=== PATIENT | male | born 1950 | race Caucasian/White ===

== ENCOUNTER 2018-07-24 16:07 | Emergency (ER) | payer MEDICARE, OTHER ==
[~2018-07-24] VITALS: Ht 175.3 cm; Wt 95.3 kg
[~2018-07-24 16:07] MED LIST: ALLOPURINOL300 MG PO; BEANO1 EACH PO; CYCLOBENZAPRINE10 MG PO; DIPYRIDAMOLE25 MG PO; FENOFIBRATE145 MG PO; FINASTERIDE5 MG PO; GLIMEPIRIDE2 MG PO; LISINOPRIL10 MG PO; OMEPRAZOLE40 MG PO; POLYETHYLENE GL17 GM PO; STOOL SOFTENER240 MG PO; TAMSULOSIN HCL0.4 MG PO; ULTRAM50 MG PO; WARFARIN SODIU2.5 MG PO; XIFAXAN550 MG PO
--- NOTE | 2018-07-24 16:10 | NUR ---
RECEIVED PT FROM EMS INTO ER 8. PT AA&OX4. COMPLAINING OF INTERMITTENT SHARP RIGHT GROIN PAIN AND ABDOMINAL BLOATING. DENIES N/V/D.
--- OUTSIDE RECORDS SUMMARY | 2018-07-24 16:10 | XMS REPORT | Clinical Summary ---
Author Author [facility] Address Unknown Phone Unavailable Care Team Providers Care Administrative Assistant Receptionist Name Role Phone Balaji Shelton PCP Unavailable Allergies Comments Active Allergy Reactions Severity Noted Date Sulfa (Sulfonamide 06/16/2016 Antibiotics) Medications End Date Status Medication Sig Dispensed Refills Start Date Active allopurinol (ZYLOPRIM) Take 300 mg 0 300 MG tablet by mouth daily. Active dipyridamole (PERSANTINE) Take 50 mg by 0 50 MG tablet mouth 4 (four) times daily. Active docusate sodium (COLACE) Take 100 mg 0 100 MG capsule by mouth 2 (two) times daily. Active fenofibrate (LOFIBRA) 54 Take 54 mg by 0 MG tablet mouth daily. Active finasteride (PROSCAR) 5 Take 5 mg by 0 mg tablet mouth daily. Active glimepiride (AMARYL) 4 MG Take 4 mg by 0 tablet mouth every morning before breakfast. Active lactulose (CEPHULAC) 20 Take 20 g by 0 gram packet mouth 3 (three) times daily. Active levothyroxine (SYNTHROID, Take 25 mcg 0 LEVOTHROID) 25 MCG tablet by mouth Every morning on an empty stomach. Active lisinopril Take 10 mg by 0 (PRINIVIL,ZESTRIL) 10 MG mouth daily. tablet Active lubiprostone (AMITIZA) 8 Take 8 mcg by 0 MCG capsule mouth 2 (two) times daily with breakfast and dinner. Active omeprazole (PRILOSEC) 20 Take 20 mg by 0 MG capsule mouth daily. Active warfarin (COUMADIN) 5 MG Take 5 mg by 0 tablet mouth daily. Active metroNIDAZOLE Apply 0 (METROCREAM) 0.75 % cream topically 2 (two) times daily. 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 Last Filed Vital Signs Time Taken Vital Sign Reading 07/28/2017 11:53 AM [facility] Blood Pressure 119/79 07/28/2017 11:53 AM [facility] Pulse 75 - Temperature - 07/28/2017 11:53 AM [facility] Respiratory Rate 16 07/28/2017 11:53 AM [facility] Oxygen Saturation 95% - Inhaled Oxygen - Concentration - Weight - - Height - - Body Mass Index - Plan of Treatment Not on file Procedures Comments Procedure Name Priority Date/Time Associated Diagnosis ECHOCARDIOGRAM REPORT - 07/28/2017 SCAN 6:20 PM [facility] TRANSESOPHAGEAL ECHO Routine 07/28/2017 Embolism due to heart 10:38 AM [facility] valve prosthesis, initial encounter PROTHROMBIN TIME/INR Routine 07/28/2017 10:34 AM [facility] COLOR-FLOW MAPPING Routine 07/28/2017 Embolism due to heart 10:16 AM [facility] valve prosthesis, initial encounter CONT WAVE PULSED DOPPLER Routine 07/28/2017 Embolism due to heart 10:16 AM [facility] valve prosthesis, initial encounter after 07/23/2017 Results * ECHOCARDIOGRAM REPORT - SCAN (07/28/2017 6:20 PM [facility]) Narrative Performed At * Transesophageal echo (07/28/2017 10:38 AM [facility]) Ejection Fraction [facility] Narrative Performed At Transesophageal Echocardiography Report (KAYLEE) [facility] Demographics [facility] CPACS Patient Name CAMILLE BUITRAGO Date of Study 07/28/2017 GUILLERMINA [id number] Male Visit Number [id number] Room Number Number Date of Birth1950Referring Physician Paul Crowley Age67 year(s)Repack Room Worker Clinton Juárez [facility] Lauryn Lnua MD Physicia n Fellow Coryeli Hsieh The procedure was explained in detail to the patient. Risks, complications and alternative treatments were reviewed. Written consent was obtained. Procedure Type of Study KAYLEE procedure:TRANSESOPHAGEAL ECHO (Routine) Indications:Embolism. Clinical History Diabetes Hypertension Stroke/TIA Thyroid disease CKD Height: 69 inches Weight: 99.34 kg (219 lbs) BSA: 2.15 m^2 BMI: 32.34 kg/m^2 HR: 71 bpm BP: 117/85 mmHg Procedure Informed Consent Procedure consent form obtained. Airway assessment performed. KAYLEE procedure notes The patient was counseled and informed consent was obtained. Topical and intravenous anesthesia was administered. The esophagus was intubated without difficulty. The probe was passed and all standard echocardiographic views were obtained. IV saline contrast echo examination was performed with KAYLEE. The patient tolerated the procedure well. Class 3: Soft and hard palate and base of the uvula are visible. Non-difficult airway. Able to breathe and cough freely. Moderate sedation by performing MD using 4 mg IV versed and 50 mcg IV fentanyl. . Mallampati Score: 3. - See IV sedation record Summary Normal biventricular systolic function. Mildly dilated left atrium. No left atrial appendage thrombus. Well-seated aortic valve mechanical prosthesis with normal function by Doppler (peak velocity 2.4m/s, mean gradient 12mmHg). Mild aortic regurgitation. 2 separate regurgitant jets are seen (one central and another smaller paravalvular jet). Proximal ascending aorta is dilated. No pericardial effusion. Previous Study No prior studies available for comparison. Signature Findings Rhythm/BP Regular sinus rhythm during the exam. LeftNormal left ventricular chamber size. Normal wall thickness. Ventricle Normal overall left ventricular systolic function. No apparent segmental wall motion abnormalities. Left Atrium LA size is mildly enlarged . No evidence of left atrial or left atrial appendage thrombus. Right The right ventricular chamber size and systolic function are Ventricle within normal limits. Right AtriumRA size is normal. Atrial Septum Normal interatrial septum by available views. No atrial shunt by color. Aortic ValveA mechanical AoV prosthesis is visualized. The prosthetic AoV appears well-seated with normal function by Doppler. Prosthetic AoV obstruction is mild P-23, M-12 mmHg . Prosthetic AoV regurgitaton is mild. From a central jet and tiny paravalvar component. Mitral ValveMild MV leaflet thickening. Trace mitral regurgitation. Tricuspid TV structure is normal. Valve Mild tricuspid regurgitation. PulmonicNormal PV structure and function. Valve A trace of pulmonary regurgitation. Aorta Proximal ascending aorta size is Moderately dilated . Grade 3 plaque . Pericardium No pericardial effusion is visualized. Procedure Note Interface, External Ris In - 07/28/2017 5:46 PM [facility] Transesophageal Echocardiography Report (KAYLEE) Demographics Patient Name CAMILLE BUITRAGO Date of Study 07/28/2017 GUILLERMINA Gender Male Visit Number [id number] Race Unknown Room Number Number Date of 1950 Referring Physician Paul Crowley Age 67 year(s) Repack Room Worker Clinton CHRISTIAN Interpreting Tez Luna MD Physician Fellow Cory Hsieh The procedure was explained in detail to the patient. Risks, complications and alternative treatments were reviewed. Written consent was obtained. Procedure Type of Study KAYLEE procedure:TRANSESOPHAGEAL ECHO (Routine) Indications:Embolism. Clinical History Diabetes Hypertension Stroke/TIA Thyroid disease CKD Height: 69 inches Weight: 99.34 kg (219 lbs) BSA: 2.15 m^2 BMI: 32.34 kg/m^2 HR: 71 bpm BP: 117/85 mmHg Procedure Informed Consent Procedure consent form obtained. Airway assessment performed. KAYLEE procedure notes The patient was counseled and informed consent was obtained. Topical and intravenous anesthesia was administered. The esophagus was intubated without difficulty. The probe was passed and all standard echocardiographic views were obtained. IV saline contrast echo examination was performed with KAYLEE. The patient tolerated the procedure well. Class 3: Soft and hard palate and base of the uvula are visible. Non-difficult airway. Able to breathe and cough freely. Moderate sedation by performing MD using 4 mg IV versed and 50 mcg IV fentanyl. . Mallampati Score: 3. - See IV sedation record Summary Normal biventricular systolic function. Mildly dilated left atrium. No left atrial appendage thrombus. Well-seated aortic valve mechanical prosthesis with normal function by Doppler (peak velocity 2.4m/s, mean gradient 12mmHg). Mild aortic regurgitation. 2 separate regurgitant jets are seen (one central and another smaller paravalvular jet). Proximal ascending aorta is dilated. No pericardial effusion. Previous Study No prior studies available for comparison. Signature Findings Rhythm/BP Regular sinus rhythm during the exam. Left Normal left ventricular chamber size. Normal wall thickness. Ventricle Normal overall left ventricular systolic function. No apparent segmental wall motion abnormalities. Left Atrium LA size is mildly enlarged . No evidence of left atrial or left atrial appendage thrombus. Right The right ventricular chamber size and systolic function are Ventricle within normal limits. Right Atrium RA size is normal. Atrial Septum Normal interatrial septum by available views. No atrial shunt by color. Aortic Valve A mechanical AoV prosthesis is visualized. The prosthetic AoV appears well-seated with normal function by Doppler. Prosthetic AoV obstruction is mild P-23, M-12 mmHg . Prosthetic AoV regurgitaton is mild. From a central jet and tiny paravalvar component. Mitral Valve Mild MV leaflet thickening. Trace mitral regurgitation. Tricuspid TV structure is normal. Valve Mild tricuspid regurgitation. Pulmonic Normal PV structure and function. Valve A trace of pulmonary regurgitation. Aorta Proximal ascending aorta size is Moderately dilated . Grade 3 plaque . Pericardium No pericardial effusion is visualized. Performing Organization Address City/State/Zipcode Phone Number [facility] * Prothrombin time/INR (07/28/2017 10:34 AM [facility]) Protime 25.5 (H) 11.7 - 14.7 seconds [facility] INR 2.3 <=5.9 [facility] Specimen Blood Narrative Performed At RECOMMENDED COUMADIN/WARFARIN INR THERAPY RANGES [facility] STANDARD DOSE: 2.0 - 3.0 Includes: PROPHYLAXIS for venous thrombosis, [facility] systemic embolization; TREATMENT for venous thrombosis and/or pulmonary embolus. HIGH RISK: Target INR is 2.5-3.5 for patients with mechanical heart valves. Performing Organization Address City/State/Zipcode Phone Number [facility] [address] [place] [address] [facility] after 07/23/2017 Insurance Payer Benefit Subscriber ID Type Phone Address Plan / Group [facility] xxxxxxxxxxx MEDICARE ADV
--- OUTSIDE RECORDS SUMMARY | 2018-07-24 16:11 | XMS REPORT | Summary of Care ---
Author Author [facility] Organization [facility] Address Unknown Phone Unavailable Encounter JERED Qureshi(ALEXANDRE) [id number] Date(s): 12/21/16 - 12/21/16 [facility] [address] [place] [address]- Discharge Diagnosis: Finger laceration Discharge Disposition: Home or Self Care Attending Physician: Javed Gonsalez MD Vital Signs Most recent to 1 2 oldest [Reference Range]: Height 172.72 cm (12/21/16 7:06 PM) Temperature Oral 98.7 DegF 98.8 DegF [96.4-99.1 DegF] (12/21/16 8:02 PM) (12/21/16 7:06 PM) Blood Pressure 134/78 mmHg 139/76 mmHg [90-140/60-90 mmHg] (12/21/16 8:02 PM) (12/21/16 7:06 PM) Respiratory Rate 16 BRMIN 18 BRMIN [14-20 BRMIN] (12/21/16 8:02 PM) (12/21/16 7:06 PM) Peripheral Pulse 81 bpm 83 bpm Rate [60-100 bpm] (12/21/16 8:02 PM) (12/21/16 7:06 PM) Weight 95.455 kg (12/21/16 7:06 PM) Body Mass Index 32 m2 (12/21/16 7:06 PM) Problem List Condition Effective Dates Status Health Status Informant Diabetes(Confirmed) Resolved Hyperlipidemia(Confi Resolved rmed) Allergies, Adverse Reactions, Alerts Substance Reaction Severity Status sulfa drugs Active Medications No data available for this section Results No data available for this section Immunizations No data available for this section Procedures Procedure Date Related Diagnosis Body Site Angiography1 1mechanical left heart valve (St. Cristopher Valve) Social History Social History Type Response Smoking Status Never smoker; Exposure to Tobacco Smoke None; Cigarette Smoking Last 365 Days No; Reg Smoking Cessation Counseling No Assessment and Plan No data available for this section
--- OUTSIDE RECORDS SUMMARY | 2018-07-24 16:11 | XMS REPORT ---
Author Author [facility] Address Unknown Phone Unavailable Care Team Providers Care Nuclear Medicine Technician Name Role Phone BRAD SHORT Unavailable Unavailable Problems This patient has no known problems. Allergies, Adverse Reactions, Alerts This patient has no known allergies or adverse reactions. Medications This patient has no known medications. Results Test Description Test Time Test Comments Text Results Atomic Results Result Comments PROTHROMBIN TIME/INR 2017-07-28 10:53:00 PROTIME (BEAKER) (test oqlp=865) 25.5 seconds 11.7-14.7 INR (BEAKER) (test vsal=519) 2.3 <=5.9 RECOMMENDED COUMADIN/WARFARIN INR THERAPY RANGESSTANDARD DOSE: 2.0 - 3.0 Inclu alan: PROPHYLAXIS for venous thrombosis, systemic embolization; TREATMENT for tanner ous thrombosis and/or pulmonary embolus.HIGH RISK: Target INR is 2.5-3.5 for pat ients with mechanical heart valves.
--- OUTSIDE RECORDS SUMMARY | 2018-07-24 16:11 | XMS REPORT | Continuity of Care Document ---
Author Author [facility] Address Unknown Phone Unavailable Problems Problem Status Onset Date Classification Date Reported Comments Source LAC Active 12/21/2016 [facility] Discharge Diagnosis: Finger laceration 12/21/2016 12/24/2016 [facility] Discharge Diagnosis: Left ankle sprain 09/12/2016 09/15/2016 [facility] Discharge Diagnosis: CHI 09/12/2016 09/15/2016 [facility] Discharge Diagnosis: Abrasion of left elbow 09/12/2016 09/15/2016 [facility] Discharge Diagnosis: Accidental fall 09/12/2016 09/15/2016 [facility] Discharge Diagnosis: Abrasion of scalp 09/12/2016 09/15/2016 [facility] HEAD INJURY Active 09/11/2016 [facility] DRUG TEST Active 06/20/2000 [facility] Diabetes Resolved Problem 12/24/2016 [facility] Hyperlipidemia Resolved Problem 12/24/2016 [facility] Medications Medication Details Route Status Patient Instructions Ordering Provider Order Date Source tramadol hydrochloride 50 MG Oral Tablet [Ultram] 50 mg=1 tab, PO, Q6H, PRN pain, No driving while under the influence of this medication, X 3 day, # 12 tab, 0 Refill(s) Active 09/12/2016 [facility] Acetaminophen 325 MG / Hydrocodone Bitartrate 5 MG Oral Tablet [[place] 5/325] 1 tab, Route: PO, Drug Form: TAB, Dosing Weight 99.091, kg, ONCE, STAT, Start date: 09/12/16 1:00:00 CDT, Stop date: 09/12/16 1:00:00 CDT Inactive 09/12/2016 [facility] Acetaminophen 325 MG / Hydrocodone Bitartrate 5 MG Oral Tablet [[place] 5/325] 1 tab, Route: PO, Drug Form: TAB, Dosing Weight 99.091, kg, ONCE, STAT, Start date: 09/12/16 0:58:00 CDT, Stop date: 09/12/16 0:58:00 CDT Inactive 09/12/2016 [facility] Saline Flush 0.9% 10 mL, Route: IVP, Drug Form: INJ, Dosing Weight 99.091, kg, PRN, PRN Line Flush, Start date: 09/12/16 0:58:00 CDT, Duration: 30 day, Stop date: 10/12/16 0:57:00 CDTNotes: (Same as: BD Posiflush) Inactive 09/12/2016 [facility] Allergies, Adverse Reactions, Alerts Substance Category Reaction Severity Reaction type Status Date Reported Comments Source sulfa drugs Assertion Drug allergy Active [facility] Immunizations Immunization Date Given Site Status Last Updated Comments Source Results Order Name Results Value Reference Range Date Interpretation Comments Source CHEM PANEL A/G Ratio 1.1 0.7 - 1.6 09/12/2016 [facility] CHEM PANEL Globulin 3.6 g/dL 2.7 - 4.2 09/12/2016 [facility] CHEM PANEL B/C Ratio 12 6 - 25 09/12/2016 [facility] CHEM PANEL AGAP 10.9 meq/L 10.0 - 20.0 09/12/2016 [facility] CHEM PANEL eGFR 52 mL/min/1.73m2 09/12/2016 Result Comment: The eGFR is calculated using the CKD-EPI formula. In most young, healthy individuals the eGFR will be >90 mL/min/1.73m2. The eGFR declines with age. An eGFR of 60-89 may be normal in some populations, particularly the elderly, for whom the CKD-EPI formula has not been extensively validated. Use of the eGFR is not recommended in the following populations: Individuals with unstable creatinine concentrations, including patients and those with serious co-morbid conditions. Patients with extremes in muscle mass or diet. The data above are obtained from the National Kidney Disease Education Program (NKDEP) which additionally recommends that when the eGFR is used in patients with extremes of body mass index for purposes of drug dosing, the eGFR should be multiplied by the estimated BMI. [facility] CHEM PANEL Bili Total 0.8 mg/dL 0.2 - 1.3 09/12/2016 [facility] CHEM PANEL Alk Phos 64 unit/L 39 - 136 09/12/2016 [facility] CHEM PANEL AST 42 unit/L 0 - 37 09/12/2016 [facility] CHEM PANEL ALT 14 unit/L 0 - 65 09/12/2016 [facility] CHEM PANEL CO2 28 meq/L 24 - 32 09/12/2016 [facility] CHEM PANEL Albumin Lvl 3.9 g/dL 3.5 - 5.0 09/12/2016 [facility] CHEM PANEL Calcium Lvl 8.9 mg/dL 8.5 - 10.5 09/12/2016 [facility] CHEM PANEL Total Protein 7.5 g/dL 6.4 - 8.4 09/12/2016 [facility] CHEM PANEL Chloride Lvl 99 meq/L 95 - 109 09/12/2016 [facility] CHEM PANEL Sodium Lvl 134 meq/L 135 - 145 09/12/2016 [facility] CHEM PANEL Potassium Lvl 3.9 meq/L 3.5 - 5.1 09/12/2016 [facility] CHEM PANEL BUN 17 mg/dL 7 - 22 09/12/2016 [facility] CHEM PANEL Creatinine Lvl 1.40 mg/dL 0.50 - 1.40 09/12/2016 [facility] CHEM PANEL Glucose Lvl 215 mg/dL 70 - 99 09/12/2016 [facility] HEMATOLOGY Platelet 185 K/CMM 133 - 450 09/12/2016 [facility] HEMATOLOGY RDW 14.3 % 11.5 - 14.5 09/12/2016 [facility] HEMATOLOGY MPV 10.0 fL 7.4 - 10.4 09/12/2016 [facility] HEMATOLOGY MCHC 33.2 g/dL 32.0 - 36.0 09/12/2016 [facility] HEMATOLOGY Hgb 15.8 g/dL 14.0 - 18.0 09/12/2016 [facility] HEMATOLOGY MCH 28.8 pg 27.0 - 31.0 09/12/2016 [facility] HEMATOLOGY MCV 86.7 fL 80.0 - 94.0 09/12/2016 [facility] HEMATOLOGY RBC 5.51 M/CMM 4.70 - 6.10 09/12/2016 [facility] HEMATOLOGY Hct 47.8 % 42.0 - 54.0 09/12/2016 [facility] HEMATOLOGY WBC 10.8 K/CMM 3.7 - 10.4 09/12/2016 [facility] HEMATOLOGY PT 31.5 s 12.0 - 14.7 09/12/2016 [facility] HEMATOLOGY INR 2.99 0.85 - 1.17 09/12/2016 [facility] HEMATOLOGY PTT 41.8 s 22.9 - 35.8 09/12/2016 [facility] HEMATOLOGY Segs 69.1 % 45.0 - 75.0 09/12/2016 [facility] HEMATOLOGY Eosinophils 3.0 % 0.0 - 4.0 09/12/2016 [facility] [place] Monocytes 8.2 % 2.0 - 12.0 09/12/2016 [facility] [place] Basophils 1.3 % 0.0 - 1.0 09/12/2016 [facility] [place] Lymphocytes 18.4 % 20.0 - 40.0 09/12/2016 [facility] [place] Lymphocytes # 2.0 K/CMM 1.0 - 5.5 09/12/2016 [facility] [place] Segs-Bands # 7.4 K/CMM 1.5 - 8.1 09/12/2016 [facility] [place] Eosinophils # 0.3 K/CMM 0.0 - 0.5 09/12/2016 [facility] [place] Monocytes # 0.9 K/CMM 0.0 - 0.8 09/12/2016 [facility] [place] Basophils # 0.1 K/CMM 0.0 - 0.2 09/12/2016 [facility] Ankle 3 views DX Ankle 3 views DX EXAM: XR LEFT ANKLE, 3 VIEWS DATE: 09/12/2016 12:58 AM CDT INDICATION: Pain Post Trauma. COMPARISON: None Available. TECHNIQUE: Frontal, oblique, and lateral views of the left ankle were obtained. FINDINGS: No fracture or malalignment is present. The soft tissues are within normal limits. There are no radiopaque foreign bodies. IMPRESSION: No acute fracture or dislocation. SL: [id number] 09/12/2016 - - Read by: Robert Gonsalez MD Dictated Date/time: 09/12/16 01:51 Electronically Signed by: Robert Gonsalez MD 09/12/16 01:52 FINAL REPORT [facility] Brain wo contrast CT Brain wo contrast CT EXAM: CT BRAIN WITHOUT CONTRAST DATE: 09/11/2016 11:42 PM CDT INDICATION: Pain Post Trauma. COMPARISON: None. TECHNIQUE: CT images were obtained from the foramen magnum to the vertex without intravenous contrast on a multidetector CT. Coronal and sagittal reconstructions were also provided for review. CT radiation dose DLP: 981.84 mGy-cm FINDINGS: No acute intracranial hemorrhage, midline shift, or mass effect is identified. The melendez-white matter differentiation is preserved. The ventricles and sulci are within normal limits, without evidence for hydrocephalus. Mild chronic microangiopathic changes are visualized. A chronic lacunar infarct is noted within the left basal ganglia. The orbits, paranasal sinuses, and mastoid air cells are unremarkable. The calvarium and skull base are intact. There is atherosclerotic calcification of the carotid siphons. IMPRESSION: No acute intracranial abnormality. SL: [id number] 09/12/2016 - - Read by: Robert Gonsalez MD Dictated Date/time: 09/12/16 00:16 Electronically Signed by: Robert Gonsalez MD 09/12/16 00:20 FINAL REPORT [facility] Vital Signs Vital Sign Value Date Comments Source Heart Rate 81 12/22/2016 [facility] Systolic (mm Hg) 134 12/22/2016 [facility] Diastolic (mm Hg) 78 12/22/2016 [facility] Respitory Rate 16 12/22/2016 [facility] Temperature Oral (F) 98.7 F 12/22/2016 [facility] BMI Calculated 32 12/22/2016 [facility] Weight 95.455 12/22/2016 [facility] Respitory Rate 18 12/22/2016 [facility] Heart Rate 83 12/22/2016 [facility] Temperature Oral (F) 98.8 F 12/22/2016 [facility] Systolic (mm Hg) 139 12/22/2016 [facility] Diastolic (mm Hg) 76 12/22/2016 [facility] Height 172.72 cm 12/22/2016 [facility] Systolic (mm Hg) 105 09/12/2016 [facility] Diastolic (mm Hg) 68 09/12/2016 [facility] Heart Rate 70 09/12/2016 [facility] Respitory Rate 18 09/12/2016 [facility] Respitory Rate 14 09/12/2016 [facility] Heart Rate 66 09/12/2016 [facility] Systolic (mm Hg) 124 09/12/2016 [facility] Diastolic (mm Hg) 76 09/12/2016 [facility] Temperature Oral (F) 98.1 F 09/12/2016 [facility] Respitory Rate 18 09/12/2016 [facility] Heart Rate 65 09/12/2016 [facility] Systolic (mm Hg) 127 09/12/2016 [facility] Diastolic (mm Hg) 73 09/12/2016 [facility] Weight 99.091 09/12/2016 [facility] BMI Calculated 32.26 09/12/2016 [facility] Height 175.26 cm 09/12/2016 [facility] Temperature Oral (F) 98.1 F 09/12/2016 [facility] Encounters Location Location Details Encounter Type Encounter Number Reason For Visit Attending Provider ADM Date DC Date Status Source [facility] Emergency [id number] Sohan Santiago 09/12/2016 09/12/2016 [facility] Emergency [id number] Javed Sunshine 12/21/2016 12/22/2016 [facility] Procedures Procedure Code Date Perfomer Comments Source Angiography<sup>1</sup> [id number] mechanical left heart valve (St. Cristopher Valve) [facility]
--- OUTSIDE RECORDS SUMMARY | 2018-07-24 16:11 | XMS REPORT | Summary of Care ---
Author Author [facility] Address Unknown Phone Unavailable Encounter JERED Qureshi(ALEXANDRE) [id number] Date(s): 09/11/16 - 09/12/16 [facility] [address] [place] [address]- Discharge Diagnosis: Left ankle sprain Discharge Diagnosis: CHI (closed head injury) Discharge Diagnosis: Abrasion of left elbow Discharge Diagnosis: Accidental fall Discharge Diagnosis: Abrasion of scalp Discharge Disposition: Home or Self Care Attending Physician: Sohan Santiago DO Vital Signs 1 2 3 Most recent to oldest [Reference Range]: 175.26 cm (09/11/16 11:08 PM) Height 98.1 DegF (09/12/16 12:54 AM) 98.1 DegF (09/11/16 11:08 PM) Temperature Oral [96.4-99.1 DegF] 105/68 mmHg (09/12/16 5:04 AM) 124/76 mmHg (09/12/16 2:34 AM) 127/73 mmHg (09/12/16 12:34 AM) Blood Pressure [90-140/60-90 mmHg] 18 BRMIN (09/12/16 5:04 AM) 14 BRMIN (09/12/16 2:34 AM) 18 BRMIN (09/12/16 12:34 AM) Respiratory Rate [14-20 BRMIN] 70 bpm (09/12/16 5:04 AM) 66 bpm (09/12/16 2:34 AM) 65 bpm (09/12/16 12:34 AM) Peripheral Pulse Rate [60-100 bpm] 99.091 kg (09/11/16 11:08 PM) Weight 32.26 m2 (09/11/16 11:08 PM) Body Mass Index Problem List Condition Effective Dates Status Health Status Informant Diabetes(Confirmed) Resolved Hyperlipidemia(Confi Resolved rmed) Allergies, Adverse Reactions, Alerts Substance Reaction Severity Status sulfa drugs Active Medications [place] 5/325 oral tablet 1 tab, Route: PO, Drug Form: TAB, Dosing Weight 99.091, kg, ONCE, STAT, Start da te: 09/12/16 0:58:00 CDT, Stop date: 09/12/16 0:58:00 CDT Start Date: 09/12/16 Stop Date: 09/12/16 Status: Completed [place] 5/325 oral tablet 1 tab, Route: PO, Drug Form: TAB, Dosing Weight 99.091, kg, ONCE, STAT, Start da te: 09/12/16 1:00:00 CDT, Stop date: 09/12/16 1:00:00 CDT Start Date: 09/12/16 Stop Date: 09/12/16 Status: Deleted Saline Flush 0.9% 10 mL, Route: IVP, Drug Form: INJ, Dosing Weight 99.091, kg, PRN, PRN Line Flush , Start date: 09/12/16 0:58:00 CDT, Duration: 30 day, Stop date: 10/12/16 0:57:0 0 CDT Notes: (Same as: BD Posiflush) Start Date: 09/12/16 Stop Date: 09/12/16 Status: Discontinued Ultram 50 mg oral tablet 50 mg=1 tab, PO, Q6H, PRN pain, No driving while under the influence of this med ication, X 3 day, # 12 tab, 0 Refill(s) Start Date: 09/12/16 Stop Date: 09/15/16 Status: Ordered Results ELECTROLYTES Most recent to 1 oldest [Reference Range]: Sodium Lvl [135-145 134 mEq/L mEq/L] *LOW* (09/12/16 2:32 AM) Potassium Lvl 3.9 mEq/L [3.5-5.1 mEq/L] (09/12/16 2:32 AM) Chloride Lvl [95-109 99 mEq/L mEq/L] (09/12/16 2:32 AM) CO2 [24-32 mEq/L] 28 mEq/L (09/12/16 2:32 AM) AGAP [10.0-20.0 10.9 mEq/L mEq/L] (09/12/16 2:32 AM) CHEM PANEL Most recent to 1 oldest [Reference Range]: Creatinine Lvl 1.40 mg/dL [0.50-1.40 mg/dL] (09/12/16 2:32 AM) eGFR 52 mL/min/1.73m2 1 *NA* (09/12/16 2:32 AM) BUN [7-22 mg/dL] 17 mg/dL (09/12/16 2:32 AM) B/C Ratio [6-25] 12 (09/12/16 2:32 AM) Glucose Lvl [70-99 215 mg/dL mg/dL] *HI* (09/12/16 2:32 AM) Total Protein 7.5 g/dL [6.4-8.4 g/dL] (09/12/16 2:32 AM) Albumin Lvl [3.5-5.0 3.9 g/dL g/dL] (09/12/16 2:32 AM) Globulin [2.7-4.2 3.6 g/dL g/dL] (09/12/16 2:32 AM) A/G Ratio [0.7-1.6] 1.1 (09/12/16 2:32 AM) Calcium Lvl 8.9 mg/dL [8.5-10.5 mg/dL] (09/12/16 2:32 AM) ALT [0-65 unit/L] 14 unit/L (09/12/16 2:32 AM) AST [0-37 unit/L] 42 unit/L *HI* (09/12/16 2:32 AM) Alk Phos [39-136 64 unit/L unit/L] (09/12/16 2:32 AM) Bili Total [0.2-1.3 0.8 mg/dL mg/dL] (09/12/16 2:32 AM) 1Result Comment: The eGFR is calculated using the [...] from the National Kid[employer] Disease Education Program ( NKDEP) which additionally recommends that when the eGFR is used in patients with extremes of body mass index for purposes of drug dosing, the eGFR should be mul tiplied by the estimated BMI. HEMATOLOGY Most recent to 1 oldest [Reference Range]: WBC [3.7-10.4 K/CMM] 10.8 K/CMM *HI* (09/12/16 2:32 AM) RBC [4.70-6.10 5.51 M/CMM M/CMM] (09/12/16 2:32 AM) Hgb [14.0-18.0 g/dL] 15.8 g/dL (09/12/16 2:32 AM) Hct [42.0-54.0 %] 47.8 % (09/12/16:32 AM) MCV [80.0-94.0 fL] 86.7 fL (09/12/16 2:32 AM) MCH [27.0-31.0 pg] 28.8 pg (09/12/16 2:32 AM) MCHC [32.0-36.0 33.2 g/dL g/dL] (09/12/16 2:32 AM) RDW [11.5-14.5 %] 14.3 % (09/12/16 2:32 AM) Platelet [133-450 185 K/CMM K/CMM] (09/12/16 2:32 AM) MPV [7.4-10.4 fL] 10.0 fL (09/12/16 2:32 AM) Segs [45.0-75.0 %] 69.1 % (09/12/16 2:32 AM) Lymphocytes 18.4 % [20.0-40.0 %] *LOW* (09/12/16:32 AM) Monocytes [2.0-12.0 8.2 % %] (09/12/16 2:32 AM) Eosinophils [0.0-4.0 3.0 % %] (09/12/16 2:32 AM) Basophils [0.0-1.0 1.3 % %] *HI* (09/12/16 2:32 AM) Segs-Bands # 7.4 K/CMM [1.5-8.1 K/CMM] (09/12/16 2:32 AM) Lymphocytes # 2.0 K/CMM [1.0-5.5 K/CMM] (09/12/16 2:32 AM) Monocytes # [0.0-0.8 0.9 K/CMM K/CMM] *HI* (09/12/16 2:32 AM) Eosinophils # 0.3 K/CMM [0.0-0.5 K/CMM] (09/12/16 2:32 AM) Basophils # [0.0-0.2 0.1 K/CMM K/CMM] (09/12/16 2:32 AM) PT [12.0-14.7 31.5 seconds seconds] *HI* (09/12/16 2:32 AM) INR [0.85-1.17] 2.99 *HI* (09/12/16 2:32 AM) PTT [22.9-35.8 41.8 seconds seconds] *HI* (09/12/16 2:32 AM) Immunizations No data available for this section [...]
[2018-07-24 17:46] LABS: BASOPHILS # (AUTO) 0.1 (0.0-0.1); BASOPHILS % 1.3 % (0.0-1.0); EOSINOPHILS # (AUTO) 0.3 (0.0-0.4); EOSINOPHILS % 3.6 % (0.0-6.0); HEMATOCRIT 48.1 % (38.2-49.6); HEMOGLOBIN 15.8 g/dL (14.0-18.0); LYMPHOCYTES # (AUTO) 1.8 (1.0-3.2); LYMPHOCYTES % 19.2 % (18.0-39.1); MEAN CORPUSCULAR HEMOGLOBIN 27.9 pg (28-32); MEAN CORPUSCULAR HGB CONC 32.8 g/dL (31-35); MONOCYTES # (AUTO) 0.7 (0.2-0.8); MONOCYTES % 7.9 % (4.4-11.3); NEUTROPHILS # (AUTO) 6.3 (2.1-6.9); NEUTROPHILS % 67.6 % (38.7-80.0); PLATELET COUNT 184 x10e3/uL (140-360); RED BLOOD COUNT 5.66 x10e6/uL (4.3-5.7); RED CELL DISTRIBUTION WIDTH 13.6 % (11.7-14.4)
[2018-07-24 18:01] LABS: ALANINE AMINOTRANSFERASE 14 IU/L (0-55); ALBUMIN 3.9 g/dL (3.5-5.0); ALBUMIN/GLOBULIN RATIO 1.3 (0.8-2.0); ALKALINE PHOSPHATASE 67 IU/L (40-150); ANION GAP 14.1 mmol/L (8-16); BLOOD UREA NITROGEN 14 mg/dL (7-26); BUN/CREATININE RATIO 12 (6-25); CALCIUM 9.5 mg/dL (8.4-10.2); CARBON DIOXIDE 26 mmol/L (22-29); CHLORIDE 102 mmol/L (98-107); CREATININE, SERUM 1.15 mg/dL (0.72-1.25); EST GLOMERULAR FILTRATION RATE > 60 ML/MIN (60-); GLUCOSE 138 mg/dL (74-118); POTASSIUM 4.1 mmol/L (3.5-5.1); SODIUM 138 mmol/L (136-145)
[2018-07-24 18:27] LABS: CLARITY,URINE SL CLOUDY (CLEAR); COLOR,URINE YELLOW (YELLOW); LEUKOCYTE ESTERASE ,URINE NEGATIVE (NEGATIVE); NITRITE,URINE NEGATIVE (NEGATIVE); PROTEIN,URINE DIPSTICK 1+ (NEGATIVE)
[2018-07-24 18:28] LABS: BILIRUBIN,URINE NEGATIVE (NEGATIVE); KETONES,URINE NEGATIVE (NEGATIVE); URINE UROBILINOGEN 0.2 mg/dL (0.2 - 1)
[2018-07-24 18:38] LABS: BACTERIA,URINE FEW /HPF; EPITHELIAL CELLS,URINE FEW /LPF; RBC,URINE 0-5 /HPF (0-5); WBC,URINE (MAN) 0-5 /HPF (0-5)
--- NOTE | 2018-07-24 18:45 | NUR ---
REPORT GIVEN TO BAILEY Gruber RN
[2018-07-24] MEDS ORDERED: AMMONIUM LACTATE1 ML TOP (19:16)
[2018-07-24] MEDS ORDERED: WARFARIN SODIU2.5 MG PO (19:16)
[2018-07-24] MEDS ORDERED: ATORVASTATIN CA20 MG PO (19:16)
[2018-07-24] MEDS ORDERED: LANTUS 3ML100 UNITS/ SC (19:16)
[2018-07-24] MEDS ORDERED: DICYCLOMINE HCL20 MG PO (19:16)
[2018-07-24] MEDS ORDERED: LEVOTHYROXINE88 MCG PO (19:16)
[2018-07-24] MEDS ORDERED: FEXOFENADINE H180 MG PO (19:16)
[2018-07-24] MEDS ORDERED: ACETAMINOPHEN325 M1 PO (19:16)
[2018-07-24] MEDS ORDERED: AMLODIPINE BESYL5 MG PO (19:16)
[2018-07-24] MEDS ORDERED: TIZANIDINE HCL4 MG PO (19:16)
[2018-07-24] MEDS ORDERED: WARFARIN SODIUM2 MG PO (19:16)
[2018-07-24] MEDS ORDERED: IOPAMIDOL 370 MG/ML 200 ML INFUS..BTL INJ ONE ×2 (19:24→21:02)
[2018-07-24] MEDS ORDERED: SODIUM CHLORIDE 0.9% 50ML 0 ML ONE (19:24)
--- NOTE | 2018-07-24 19:25 | Diagnostic Imaging Report ---
EXAM: CT Abdomen and Pelvis WITH contrast INDICATION: Right lower quadrant pain COMPARISON: None. TECHNIQUE: Abdomen and pelvis were scanned utilizing a multidetector helical scanner from the lung base to the pubic symphysis after administration of IV contrast. Coronal and sagittal reformations were obtained. Routine protocol was performed. Scan was performed when during portal venous phase. IV CONTRAST: 100 mL of Isovue-370 ORAL CONTRAST: Water RADIATION DOSE: Total DLP: 738.12 mGy*cm Estimated effective dose: (DLP x 0.015 x size factor) mSv All CT scans are performed using radiation dose reduction techniques. Technical factors are evaluated and adjusted to ensure appropriate moderation of exposure. Automated dose management technology is applied to adjust the radiation dose to minimize exposure while achieving a diagnostic-quality image. COMPLICATIONS: None FINDINGS: LINES and TUBES: Curvilinear wire anterior to the heart and in the subcutaneous fat. LOWER THORAX: Unremarkable HEPATOBILIARY: No focal hepatic lesions. No biliary ductal dilation. GALLBLADDER: Surgical clips in the gallbladder fossa. SPLEEN: No splenomegaly. PANCREAS: No focal masses or ductal dilatation. ADRENALS: No adrenal nodules KIDNEYS/URETERS: Kidneys enhance symmetrically. No hydronephrosis. No cystic or solid mass lesions. No stones. GI TRACT: No abnormal distention, wall thickening, or evidence of bowel obstruction. Appendix is normal. PELVIC ORGANS/BLADDER: Unremarkable. LYMPH NODES: No lymphadenopathy. VESSELS: Unremarkable. PERITONEUM / RETROPERITONEUM: No free air or fluid. BONES: Unremarkable. SOFT TISSUES: Small fat-containing inguinal hernias. IMPRESSION: 1. No acute CT abnormality in the abdomen or pelvis. The appendix is normal in appearance. Signed by: Dr. Bobby Hollingsworth M.D. on 07/24/2018 7:21 PM
[2018-07-24] MEDS ORDERED: SODIUM CHLORIDE 0.9% 50ML 50 ML ONE (21:01)
== END 2018-07-24 21:49 | disposition home or self-care (01) ==
LOC: ER 16:07
DX: R10.32 Left lower quadrant pain (principal); R10.31 Right lower quadrant pain; R11.0 Nausea; I10 Essential (primary) hypertension; E11.9 Type 2 diabetes mellitus without complications; E03.9 Hypothyroidism, unspecified; K21.9 Gastro-esophageal reflux disease without esophagitis; E78.5 Hyperlipidemia, unspecified; Z95.1 Presence of aortocoronary bypass graft
CPT/HCPCS: 36415; 74177; 80053; 81001; 84484; 85025; 93005; 99284; Q9967

== ENCOUNTER 2022-12-08 18:52 | Emergency (ER) | payer MEDICARE ==
[~2022-12-08] VITALS: Ht 175.3 cm; Wt 95.3 kg
[~2022-12-08 18:52] MED LIST changes: -FENTANYL CITRATE/PF 100MCG/2 ML INJ ONE; -GENTAMICIN 80MG/NS 100 ML 200 ML IV ONE; -HYDRALAZINE HCL 20 MG/ML VIAL IV ONE; -HYDRALAZINE HCL 20 MG/ML VIAL ONE; -LACTATED RINGER'S 1,000 ML ONE; -LIDOCAINE HCL 2% LOCAL INJ 5 ML SDV VIAL INJ ONE; -PHENAZOPYRIDINE HCL 100 MG TAB ONE; -PHENAZOPYRIDINE HCL 100 MG TAB PO ONE; -PIPERACILLIN/TAZOBACTAM 3.375 GM VIAL ONE; -POVIDONE IODINE 0.05% 0.05 % ML PO ONE; -PROPOFOL IV EMULSION 10 MG/ML 20 ML VIAL ONE; -SEVOFLURANE INHAL SOLN 250 ML PEN BTL ONE
[2022-12-08] MEDS ORDERED: LIDOCAINE JELLY 2% 10ML URO-JET ONE (20:18)
[2022-12-08 20:25] LABS: BASOPHILS # (AUTO) 0.1 (0.0-0.1); BASOPHILS % 0.9 % (0.0-1.0); EOSINOPHILS # (AUTO) 0.2 (0.0-0.4); EOSINOPHILS % 1.4 % (0.0-6.0); HEMATOCRIT 44.1 % (38.2-49.6); HEMOGLOBIN 14.3 g/dL (14.0-18.0); LYMPHOCYTES # (AUTO) 1.2 (1.0-3.2); LYMPHOCYTES % 7.6 % (18.0-39.1); MEAN CORPUSCULAR HEMOGLOBIN 25.4 pg (28-32); MEAN CORPUSCULAR HGB CONC 32.4 g/dL (31-35); MEAN CORPUSCULAR VOLUME 78.3 fL (81-99); MONOCYTES % 6.2 % (4.4-11.3); NEUTROPHILS # (AUTO) 13.5 (2.1-6.9); NEUTROPHILS % 83.4 % (38.7-80.0); PLATELET COUNT 255 x10e3/uL (140-360); RED BLOOD COUNT 5.63 x10e6/uL (4.3-5.7); RED CELL DISTRIBUTION WIDTH 16.4 % (11.7-14.4)
[2022-12-08 20:42] LABS: ALBUMIN 3.9 g/dL (3.5-5.0); ALBUMIN/GLOBULIN RATIO 1.1 (0.8-2.0); ANION GAP 17.2 mmol/L (8-16); CALCIUM 9.5 mg/dL (8.4-10.2); CREATININE, SERUM 1.14 mg/dL (0.72-1.25); POTASSIUM 4.2 mmol/L (3.5-5.1)
[2022-12-08] MEDS ORDERED: LIDOCAINE JELLY 2% 10ML URO-JET TOP ONE (20:45)
[2022-12-08 22:29] VITALS: BP 127/93; O2SAT 99
== END 2022-12-08 22:23 | disposition home or self-care (01) ==
LOC: ER 19:07
DX: R33.9 Retention of urine, unspecified (principal); I10 Essential (primary) hypertension; E11.65 Type 2 diabetes mellitus with hyperglycemia; E78.5 Hyperlipidemia, unspecified; E03.9 Hypothyroidism, unspecified; K21.9 Gastro-esophageal reflux disease without esophagitis; M10.9 Gout, unspecified; R01.1 Cardiac murmur, unspecified; Z95.1 Presence of aortocoronary bypass graft; Z96.611 Presence of right artificial shoulder joint
CPT/HCPCS: 36415; 51700; 80053; 85025; 99284

== ENCOUNTER → 2022-12-08 | Day surgery (SDC) | payer MEDICARE ==
[2022-12-06 11:54] LABS: BASOPHILS # (AUTO) 0.1 (0.0-0.1); BASOPHILS % 1.2 % (0.0-1.0); EOSINOPHILS # (AUTO) 0.4 (0.0-0.4); EOSINOPHILS % 3.7 % (0.0-6.0); LYMPHOCYTES # (AUTO) 1.6 (1.0-3.2); LYMPHOCYTES % 14.1 % (18.0-39.1); MEAN CORPUSCULAR HEMOGLOBIN 25.5 pg (28-32); MEAN CORPUSCULAR HGB CONC 32.6 g/dL (31-35); MEAN CORPUSCULAR VOLUME 78.2 fL (81-99); MONOCYTES # (AUTO) 0.8 (0.2-0.8); MONOCYTES % 6.8 % (4.4-11.3); NEUTROPHILS # (AUTO) 8.6 (2.1-6.9); NEUTROPHILS % 73.7 % (38.7-80.0); PLATELET COUNT 226 x10e3/uL (140-360)
[2022-12-06 12:13] LABS: ALANINE AMINOTRANSFERASE 10 IU/L (0-55); ALBUMIN 3.5 g/dL (3.5-5.0); ALBUMIN/GLOBULIN RATIO 0.9 (0.8-2.0); ALKALINE PHOSPHATASE 101 IU/L (40-150); ANION GAP 12.2 mmol/L (8-16); BLOOD UREA NITROGEN < 5 mg/dL (7-26); BUN/CREATININE RATIO 4 (6-25); CALCIUM 9.3 mg/dL (8.4-10.2); CARBON DIOXIDE 23 mmol/L (22-29); CHLORIDE 104 mmol/L (98-107); CREATININE, SERUM 1.12 mg/dL (0.72-1.25); GLUCOSE 276 mg/dL (74-118); POTASSIUM 4.2 mmol/L (3.5-5.1); SODIUM 135 mmol/L (136-145)
[~2022-12-08] MED LIST changes: +ACETAMINOPHEN325 M1 PO; +ALIGN4 MG PO; +AMLODIPINE BESYL5 MG PO; +AMMONIUM LACTATE1 ML TOP; +ASPIRIN81 MG PO; +ATORVASTATIN CA20 MG PO; +BEANO400 UNIT PO; +DICYCLOMINE HCL20 MG PO; +FENTANYL CITRATE/PF 100MCG/2 ML INJ ONE; +FEXOFENADINE H180 MG PO; +GENTAMICIN 80MG/NS 100 ML 200 ML IV ONE; +HYDRALAZINE HCL 20 MG/ML VIAL IV ONE; +HYDRALAZINE HCL 20 MG/ML VIAL ONE; +LACTATED RINGER'S 1,000 ML ONE; +LANTUS 3ML100 UNITS/ SC; +LEVOTHYROXINE88 MCG PO; +LIDOCAINE HCL 2% LOCAL INJ 5 ML SDV VIAL INJ ONE; +LINZESS290 MCG PO; +PHENAZOPYRIDINE HCL 100 MG TAB ONE; +PHENAZOPYRIDINE HCL 100 MG TAB PO ONE; +PIPERACILLIN/TAZOBACTAM 3.375 GM VIAL ONE; +POVIDONE IODINE 0.05% 0.05 % ML PO ONE; +PROPOFOL IV EMULSION 10 MG/ML 20 ML VIAL ONE; +SEVOFLURANE INHAL SOLN 250 ML PEN BTL ONE; +TIZANIDINE HCL4 MG PO; +VIT C PO; +VIT D3 PO; +WARFARIN SODIUM2 MG PO; +ZINC PO
[2022-12-08 11:42] VITALS: TEMP 97.2
[2022-12-08 13:00] VITALS: BP 137/84; PULSE 72; RESP 18; O2SAT 100
== END | disposition home or self-care (01) ==
LOC: OR 06:41
PROVIDERS: ATTEND Urology
DX: R97.20 Elevated prostate specific antigen [PSA] (principal); N40.1 Benign prostatic hyperplasia with lower urinary tract symptoms; N13.8 Other obstructive and reflux uropathy; N32.89 Other specified disorders of bladder; E11.9 Type 2 diabetes mellitus without complications; Z88.2 Allergy status to sulfonamides; Z88.7 Allergy status to serum and vaccine; Z88.8 Allergy status to other drugs, medicaments and biological substances; Z01.810 Encounter for preprocedural cardiovascular examination; Z01.812 Encounter for preprocedural laboratory examination; Z01.818 Encounter for other preprocedural examination; Z79.82 Long term (current) use of aspirin; Z79.4 Long term (current) use of insulin; Z79.84 Long term (current) use of oral hypoglycemic drugs; Z79.01 Long term (current) use of anticoagulants; Z86.73 Personal history of transient ischemic attack (TIA), and cerebral infarction without residual deficits
CPT/HCPCS: 36415 ×2; 52000; 55700; 71046; 76872; 76998; 80053; 82948; 85025; 88305; 93005; J0360; J1580; J2001; J2543; J2704; J3010; J7121; 88304